=== PATIENT | female | born 1985 | race Hispanic/Latino ===

== ENCOUNTER 2022-04-01 05:36 | Day surgery (SDC) | payer OTHER ==
[2022-03-26 14:37] LABS: BASOPHILS % (AUTO) 0.3 % (0.0-5.0); EOSINOPHILS % (AUTO) 1.3 % (0.0-8.0); HEMATOCRIT 43.9 % (36-48); LYMPHOCYTES % (AUTO) 30.1 % (21.0-51.0); MEAN CORPUSCULAR HEMOGLOBIN 29.7 pg (27.0-33.0); MEAN CORPUSCULAR HGB CONC 32.3 g/dL (32.0-36.0); MEAN CORPUSCULAR VOLUME 91.8 fL (79-99); MONOCYTES % (AUTO) 3.9 % (3.0-13.0); PLATELET COUNT (AUTO) 396 K/uL (130-400); RED BLOOD CELL COUNT(AUTO) 4.78 MIL/uL (4.00-5.50); RED CELL DISTRIBUTION WIDTH 11.9 % (11.0-15.5)
[2022-03-28 13:34] VITALS: BP 107/56
[2022-04-01] VITALS (12 sets, daily range): BP systolic 104–118; BP diastolic 61–71
[~2022-04-01] VITALS: Ht 176.5 cm; Wt 99.4 kg
[~2022-04-01 05:36] MED LIST: STRONG IODINE SOLN 14ML BOTTLE ONE
[2022-04-01] MEDS ORDERED: CEFAZOLIN SODIUM 2 GM VIAL ONE (06:37)
[2022-04-01] MEDS ORDERED: 0.9%NACL 1000ML 1,000 ML IV ONE (06:37)
[2022-04-01] MEDS ORDERED: SUCCINYLCHOLINE CHLORIDE 20 MG/ML 10 ML VIAL ONE (07:09)
[2022-04-01] MEDS ORDERED: LIDOCAINE PF 100MG/5ML (2%) SYRINGE 5ML ONE (07:09)
[2022-04-01] MEDS ORDERED: MIDAZOLAM HCL 1 MG/ML 2ML VIAL ONE (07:10)
[2022-04-01] MEDS ORDERED: FENTANYL CITRATE PF 50 MCG/1 ML 2ML VIAL ONE (07:10)
[2022-04-01] MEDS ORDERED: PROPOFOL 10 MG/ML 20ML VIAL IV ONE (07:11)
[2022-04-01] MEDS ORDERED: KETOROLAC 30MG VIAL (30MG/ML) ONE (07:12)
[2022-04-01] MEDS ORDERED: PHENYLEPHRINE HCL 10 MG/ML 1ML VIAL IV ONE (07:23)
[2022-04-01] MEDS ORDERED: ONDANSETRON 4MG INJ ONE (07:23)
[2022-04-01] MEDS ORDERED: CALDOLOR 800MG+NS 250ML 250 ML IV SCH (07:30)
[2022-04-01] MEDS ORDERED: CEFAZOLIN SODIUM 2 GM VIAL IVPB ONE (07:33)
[2022-04-01] MEDS ORDERED: CEFAZOLIN SODIUM 2 GM VIAL IVPB PRN (08:00)
[2022-04-01] MEDS ORDERED: LACTATED RINGERS 1000ML 1,000 ML IV SCH (08:00)
[2022-04-01] MEDS ORDERED: EPHEDRINE SULFATE 50 MG/ML AMPULE ONE (09:23)
== END 2022-04-01 09:30 | disposition home or self-care (01) ==
LOC: DAH 05:36
PROVIDERS: ATTEND Obstetrics & Gynecology
DX: R87.613 High grade squamous intraepithelial lesion on cytologic smear of cervix (HGSIL) (principal); Z20.822 Contact with and (suspected) exposure to COVID-19; I10 Essential (primary) hypertension; E11.9 Type 2 diabetes mellitus without complications; Z79.899 Other long term (current) drug therapy; Z79.01 Long term (current) use of anticoagulants; Z98.84 Bariatric surgery status; Z98.890 Other specified postprocedural states; Z82.49 Family history of ischemic heart disease and other diseases of the circulatory system; Z83.3 Family history of diabetes mellitus
CPT/HCPCS: 84703 ×2; 85025; 86850 ×2; 86900 ×2; 86901 ×2; 87426; 36415 ×2; 57520; 82948 ×2; A4663; A4351; J3010; J0330; J7030; J2001; J3490; J2250; J2704; J2405; J1885; J2370; J1741; J0690 ×2; A4649; A4215; A4223; A4222; A4221; A4600; A4510